=== PATIENT | male | born 1980 | race Caucasian/White ===

== ENCOUNTER 2017-07-09 19:57 | Emergency (ER) | payer OTHER ==
[~2017-07-09] VITALS: Ht 182.9 cm; Wt 118.0 kg
[~2017-07-09 19:57] MED LIST: BACT800T5 PO; CEPH500C3 PO; LORTA5 PO
[2017-07-09 19:59] VITALS: BP 142/79; PULSE 96; RESP 16; TEMP 99.1; O2SAT 98
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
[2017-07-09] MEDS ORDERED: IBUP1TAB7 PO (22:16)
[2017-07-09] MEDS ORDERED: ROBA750T PO (22:16)
[2017-07-09] MEDS ORDERED: IBUPROFEN 800 MG TAB PO ONE (22:30)
== END 2017-07-09 22:37 | disposition home or self-care (01) ==
LOC: MERGE 19:57 → NEPC 19:57
DX: S20.211A Contusion of right front wall of thorax, initial encounter (principal); S40.012A Contusion of left shoulder, initial encounter; V43.51XA Car driver injured in collision with sport utility vehicle in traffic accident, initial encounter; Y93.89 Activity, other specified; Y92.413 State road as the place of occurrence of the external cause
CPT/HCPCS: 71101; 73030; 99284